=== PATIENT | female | born 1960 | race Hispanic/Latino ===

== ENCOUNTER → 2017-06-04 | Outpatient (CLI) | payer OTHER | END | disposition home or self-care (01) | LOC: RAH 13:40 | PROVIDERS: ATTEND Physical Medicine & Rehabilitation | DX: I69.959 Hemiplegia and hemiparesis following unspecified cerebrovascular disease affecting unspecified side (principal); G31.9 Degenerative disease of nervous system, unspecified | CPT/HCPCS: 70551 ==

== ENCOUNTER 2019-06-19 10:09 | Day surgery (SDC) | payer OTHER ==
[~2019-06-19] VITALS: Ht 160 cm; Wt 54.0 kg
[~2019-06-19 10:09] MED LIST: ASPI-1181 PO; BENZ-51 PO; CALC0.253 PO; CLOP75TA14 PO; FOLI1TAB85 PO; GABA-529 PO; LEVO137T2 PO; MIDO5TAB4 PO; ONDA-104 PO; PANT40TA25 PO; SEVE800T27 PO; SODIUM CHLORIDE 0.9% 1000ML 1,000 ML IV ONE
[2019-06-19] MEDS ORDERED: EPINEPHRINE 0.1 MG/ML 10 ML SYG IVP ONE (10:10)
[2019-06-19] MEDS ORDERED: CALCIUM CHLORIDE 100 MG/ML 10 ML SYG IVP ONE (10:10)
[2019-06-19] MEDS ORDERED: SODIUM BICARB 8.4% 50ML SYRINGE IVP ONE (10:10)
[2019-06-19] MEDS ORDERED: NOREPINEPHRINE BITARTRATE 1 MG/1 ML ML IV ONE (10:10)
[2019-06-19] MEDS ORDERED: AMIODARONE HCL 50 MG/ML 3 ML VIAL IV ONE (10:10)
[2019-06-19] MEDS ORDERED: LIDOCAINE PF 2% 5ML ABBOJECT IVP ONE (10:10)
[2019-06-19] MEDS ORDERED: MAGNESIUM SULFATE 1 GM/2 ML VIAL IM ONE (10:10)
[2019-06-19] MEDS ORDERED: ATROPINE SULFATE 0.1 MG/ML 10 ML SYG IVP ONE (10:10)
[2019-06-19 12:02] VITALS: BP 95/51
[2019-06-19] MEDS ORDERED: PROPOFOL 10 MG/ML 20ML VIAL IV ONE (12:51)
[2019-06-19] MEDS ORDERED: EPHEDRINE SULFATE 50 MG/ML AMPULE ONE (13:01)
[2019-06-19] MEDS ORDERED: EPINEPHRINE 1 MG/ML AMPULE ONE (13:03)
--- NOTE | 2019-06-19 13:05 | NUR ---
EGD DONE WITH ESOPHAGEAL DILATION, PATIENT PULSE DECREASE AND TO 30S, BREATH ING DECREASE PATIENT BAGGED AND INTUBATED, CODE CALL, CPR STARTED AND CONITNUE UNTIL FAMILY WAS INFORM INFORM AND WANTED TO STOP. CODE.
[2019-06-19 13:24] LABS: ABG OXYGEN SATURATION 30.9 % (95.0-99.0); BASE EXCESS,VENOUS BLOOD GAS -5.4 (-2.0-3.0); HCO3,VENOUS BLOOD GAS 21.1 (21.0-28.0); PCO2,VENOUS BLOOD GAS 45 (32-45); PH,VENOUS BLOOD GAS 7.286 (7.350-7.450)
--- NOTE | 2019-06-19 14:04 | NUR ---
SHANELLE Rocha present with and family for shanelle peck. Sw provided emotional support. states pt had directives and did not want to be intubated if ever anything happened. Dr Ku met with family and discussed situation and decided to stop CPR. Electro Mechanical Engineer present as well and provided spiritual support.
--- NOTE | 2019-06-19 14:10 | NUR ---
EXPIRATION/ CERTIFICATION PLACED A CALL TO DR. MAGO JONES THE PRIMARY MD, SPOKE WITH DR. GUZMAN DUBOSE SINCE DR. JACKSON WAS NOT IN TODAY. DR. DUBOSE STATED THAT DR. JACKSON WILL SIGN THE CERTIFICATE
--- NOTE | 2019-06-19 14:23 | NUR ---
CHIEF INTERNAL AUDITOR PLACED A CALL TO DR. SHAWNA ABRAMS THE CHIEF INTERNAL AUDITOR TO INFORM HER THAT PATIENT'S PRIMARY MD WILL SIGN THE CERTIFICATE. THIS CALL TO HER WAS PER POLICY BECAUSE THE PATIENT WAS HERE FOR A PROCEDURE AND WAS HERE FOR LESS THAN 24 HOURS. I GAVE HER THE PATIENT'S HX AND SHE SAID NO NEED FOR AUTOPSY
== END 2019-06-19 19:15 | disposition expired ==
LOC: ENDO 10:09 → DAH 10:09 → ENDO 19:15
PROVIDERS: ATTEND Internal Medicine
DX: R13.11 Dysphagia, oral phase (principal); K22.2 Esophageal obstruction; K29.50 Unspecified chronic gastritis without bleeding; K31.89 Other diseases of stomach and duodenum; I49.01 Ventricular fibrillation; I25.2 Old myocardial infarction; I12.0 Hypertensive chronic kidney disease with stage 5 chronic kidney disease or end stage renal disease; E11.22 Type 2 diabetes mellitus with diabetic chronic kidney disease; N18.6 End stage renal disease; I25.119 Atherosclerotic heart disease of native coronary artery with unspecified angina pectoris; E78.00 Pure hypercholesterolemia, unspecified; Z79.82 Long term (current) use of aspirin; Z79.01 Long term (current) use of anticoagulants; Z99.2 Dependence on renal dialysis; Z79.899 Other long term (current) drug therapy; Z90.89 Acquired absence of other organs; Z95.1 Presence of aortocoronary bypass graft; Z86.73 Personal history of transient ischemic attack (TIA), and cerebral infarction without residual deficits
CPT/HCPCS: 36415; 36600; 43239; 43248; 82435; 82803; 82947; 82948 ×2; 83605; 84132 ×2; 84295; 88305; 92950; 93005; A4215; A4221; A4222; A4223; A4606; A4620; A4663; J0171 ×2; J0282; J0461; J2001; J2704; J3475; J3490 ×4; J7030